=== PATIENT | female | born 1970 | race Hispanic/Latino ===

== ENCOUNTER 2021-04-21 15:08 | Emergency (ER) | payer OTHER ==
[~2021-04-21] VITALS: Ht 157.5 cm; Wt 97.1 kg
[2021-04-21] MEDS ORDERED: ONDANSETRON HCL 4 MG/2 ML VIAL IVP ONE (16:00)
[2021-04-21] MEDS ORDERED: MORPHINE 4 MG SYG (4MG/1ML) IV ONE (16:00)
[2021-04-21 16:36] LABS: APPEARANCE,URINE Clear (CLEAR); BILIRUBIN,URINE Negative (NEGATIVE); COLOR,URINE Yellow (YELLOW); GLUCOSE, URINE (UA) Negative (NEGATIVE); KETONES,URINE Negative (NEGATIVE); LEUKOCYTE ESTERASE ,URINE Large (NEGATIVE); NITRATE,URINE Negative (NEGATIVE); OCCULT BLOOD,URINE Large (NEGATIVE); PROTEIN,URINE Trace mg/dL (NEGATIVE); UROBILINOGEN,URINE 0.2 mg/dL (0.2-1.0)
[2021-04-21 16:42] LABS: HCG,QUAL RESULT NEGATIVE (NEGATIVE)
[2021-04-21 16:46] LABS: BASOPHILS % (AUTO) 0.5 % (0.0-5.0); HEMATOCRIT 34.7 % (36-48); LYMPHOCYTES % (AUTO) 12.2 % (21.0-51.0); MEAN CORPUSCULAR HEMOGLOBIN 24.9 pg (27.0-33.0); MEAN CORPUSCULAR HGB CONC 31.4 g/dL (32.0-36.0); MEAN CORPUSCULAR VOLUME 79.2 fL (79-99); MONOCYTES % (AUTO) 9.7 % (3.0-13.0); NEUTROPHILS % (AUTO) 76.2 % (40.0-77.0); PLATELET COUNT (AUTO) 400 K/uL (130-400); RED BLOOD CELL COUNT(AUTO) 4.38 MIL/uL (4.00-5.50); RED CELL DISTRIBUTION WIDTH 16.5 % (11.0-15.5); WHITE BLOOD COUNT (AUTO) 12.8 K/uL (4.8-10.8)
[2021-04-21 16:57] LABS: BACTERIA,URINE Few /HPF (None Seen); MUCUS,URINE Few LPF (None Seen); SQUAMOUS EPITHELIAL CELL,UR 0-2 /HPF (0-2)
[2021-04-21 17:04] LABS: CREATININE 0.9 mg/dL (0.5-1.5)
[2021-04-21 17:08] LABS: ALBUMIN 3.4 g/dL (3.5-5.0); BILIRUBIN,TOTAL 0.2 mg/dL (0.2-1.0); TOTAL PROTEIN, SERUM 7.9 g/dL (6.0-8.3)
[2021-04-21 17:12] VITALS: BP 194/103
[2021-04-21] MEDS ORDERED: HYDRALAZINE HCL 20 MG/ML VIAL ONE (17:16)
[2021-04-21] MEDS ORDERED: CEFTRIAXONE SODIUM 1 GM ONE (17:21)
[2021-04-21] MEDS ORDERED: SODIUM CHLORIDE 0.9% 50 ML IV ONE (17:22)
[2021-04-21 17:29] VITALS: BP 178/85
[2021-04-21 18:34] VITALS: BP 173/91
[2021-04-21 19:24] VITALS: BP 180/90
[2021-04-21] MEDS ORDERED: IBUP-2070 PO (20:03)
[2021-04-21] MEDS ORDERED: ONDA4TAB4 PO (20:03)
[2021-04-21] MEDS ORDERED: CIPR-278 PO (20:03)
[2021-04-21 20:12] VITALS: BP 160/82
== END 2021-04-21 20:25 | disposition home or self-care (01) ==
LOC: EDBD 15:08 → EDH 15:08
DX: N12 Tubulo-interstitial nephritis, not specified as acute or chronic (principal); E86.0 Dehydration; R11.2 Nausea with vomiting, unspecified; Z79.899 Other long term (current) drug therapy
CPT/HCPCS: 36415; 74176; 80053; 81001; 81025; 83690; 84484; 85025; 87077; 87088; 87186; 93005; 96365; 96375; 99285; J0360; J0696; J2270; J2405

== ENCOUNTER 2022-04-05 18:12 | Emergency (ER) | payer OTHER ==
[~2022-04-05] VITALS: Ht 162.6 cm; Wt 90.7 kg
[~2022-04-05 18:12] MED LIST: CIPR-278 PO; IBUP-2070 PO; ONDA4TAB4 PO
[2022-04-05 19:00] LABS: BASOPHILS % (AUTO) 0.3 % (0.0-5.0); EOSINOPHILS % (AUTO) 0.8 % (0.0-8.0); HEMATOCRIT 34.6 % (36-48); LYMPHOCYTES % (AUTO) 16.1 % (21.0-51.0); MEAN CORPUSCULAR HEMOGLOBIN 25.5 pg (27.0-33.0); MEAN CORPUSCULAR HGB CONC 31.2 g/dL (32.0-36.0); MEAN CORPUSCULAR VOLUME 81.6 fL (79-99); MONOCYTES % (AUTO) 9.4 % (3.0-13.0); PLATELET COUNT (AUTO) 348 K/uL (130-400); RED BLOOD CELL COUNT(AUTO) 4.24 MIL/uL (4.00-5.50); RED CELL DISTRIBUTION WIDTH 17.5 % (11.0-15.5); WHITE BLOOD COUNT (AUTO) 11.4 K/uL (4.8-10.8)
[2022-04-05] MEDS ORDERED: ACETAMINOPHEN 500 MG TABLET PO ONE (19:00)
[2022-04-05] MEDS ORDERED: LACTATED RINGERS 1000ML 1,000 ML IV ONE (19:00)
[2022-04-05 19:10] LABS: CREATININE 1.4 mg/dL (0.5-1.5); POTASSIUM 4.1 mmol/L (3.5-5.1)
[2022-04-05 19:11] LABS: APPEARANCE,URINE Clear (CLEAR); BILIRUBIN,URINE Negative (NEGATIVE); COLOR,URINE Yellow (YELLOW); GLUCOSE, URINE (UA) Negative (NEGATIVE); KETONES,URINE Negative (NEGATIVE); LEUKOCYTE ESTERASE ,URINE Negative (NEGATIVE); NITRATE,URINE Negative (NEGATIVE); OCCULT BLOOD,URINE Large (NEGATIVE); PROTEIN,URINE Negative (NEGATIVE); UROBILINOGEN,URINE 0.2 mg/dL (0.2-1.0)
[2022-04-05 19:21] LABS: ALBUMIN 3.3 g/dL (3.5-5.0); BILIRUBIN,TOTAL 0.2 mg/dL (0.2-1.0); TOTAL PROTEIN, SERUM 7.2 g/dL (6.0-8.3)
[2022-04-05 19:30] LABS: BACTERIA,URINE None Seen /HPF (None Seen); SQUAMOUS EPITHELIAL CELL,UR None Seen /HPF (0-2); WBC,URINE None Seen /HPF (0-1)
[2022-04-05] MEDS ORDERED: MORPHINE 2 MG SYG IVP ONE (21:30)
[2022-04-05] MEDS ORDERED: KETOROLAC 15MG/ML VIAL (15MG/ML) IV ONE (21:30)
[2022-04-05] MEDS ORDERED: ONDANSETRON 4MG INJ IVP ONE (21:30)
[2022-04-05] MEDS ORDERED: LISI1TAB53 PO (22:27)
[2022-04-05 22:42] VITALS: BP 165/102
== END 2022-04-05 22:41 | disposition home or self-care (01) ==
LOC: EDH 18:12
DX: R10.9 Unspecified abdominal pain (principal); I10 Essential (primary) hypertension; R19.7 Diarrhea, unspecified; Z79.1 Long term (current) use of non-steroidal anti-inflammatories (NSAID); Z79.899 Other long term (current) drug therapy
CPT/HCPCS: 36415; 73630; 74176; 80053; 81001; 81025; 83690; 84702; 85025; 93005; 96361; 96374; 96375; 99285; J1885; J2405; J7030